=== PATIENT | male | born 1955 | race Caucasian/White ===

== ENCOUNTER 2017-06-14 07:04 | Day surgery (SDC) | payer MEDICARE, BC ==
--- NOTE | 2017-06-14 06:25 | History and Physical Report ---
DATE: 06/13/2017. CHIEF COMPLAINT AND HISTORY OF CHIEF COMPLAINT: This patient presents with a history of postlaminectomy radiculitis. Due to the failure of all therapies, the patient presents today for an implanted spinal catheter infusion trial with hydromorphone to determine if the implantation of a permanent system will be of any value in pain control. PAST MEDICAL HISTORY: Cardiac arrhythmia and sleep apnea. PAST SURGICAL HISTORY: Lumbar spinal surgery times two, throat surgery. EMPLOYMENT STATUS: Retired. MEDICATIONS ON ADMISSION: To be provided. He is on aspirin. ALLERGIES: None listed. SOCIAL HISTORY: Caffeine. FAMILY HISTORY: Cancer. REVIEW OF SYSTEMS: The patient seems appropriate and in no acute distress. The remainder of the systems review shows glasses, dentures, sleep disturbance, cardiac disease, depression, and difficulty sleeping. PHYSICAL EXAMINATION: General: Height is 5 feet, 11 inches. Weight is 230. Vital Signs: Unavailable. HEENT: Within normal limits. Lungs: Clear. Heart: Regular rate and rhythm. Abdomen: Nontender. Musculoskeletal: Examination of the musculoskeletal system shows diffuse tenderness throughout the lumbar spine. The primary pain extends down the right lower extremity. Motor and sensory field function appears to be intact on the left and is reduced on the right. Ambulation: Assistive device utilized. Neurologic: Cranial nerves are intact. IMPRESSION: 1. POSTLUMBAR LAMINECTOMY SYNDROME, ICD-10 CODE M96.1. 2. LUMBAR RADICULITIS, ICD-10 CODE M54.16 AND M54.17. PLAN: The patient is here for an implanted spinal catheter infusion trial with hydromorphone. The potential risks, side effects, and complications including nerve root injury, spinal cord injury, dural puncture, and spinal headache have all bee discussed and reviewed. Information about the pump through the artificial limb maker booklet has been provided and reviewed. This also discusses all of the potential risks, side effects, and complications. He has been in contact with the [employer] sales representative who has also reviewed the information. The patient understands and consents. The procedure will be consider outpatient, although an overnight stay will be evaluated. An epidural blood patch will be performed as a secondary measure to prevent spinal headache. This will require that he lie flat for four hours and then slowly elevated for one hour. The patient understands all of the potential risks and has agreed to proceed. JOB NUMBER: [id number] cc: Amber Yan
[~2017-06-14 07:04] MED LIST: ACETAMINOPHEN 1,000 MG/100 ML BTL IV ONE; CEFAZOLIN 2 Gram 2 GM/50 ML BAG IVPB ONE; FAMOTIDINE 20MG TABLET PO ONE; HYDROMORPHONE PF 2MG/ML AMP 0.004 MG in 0.9 % SODIUM CHLORIDE 10ML VIA 0.998 ML IV ONE; HYDROMORPHONE PF 2MG/ML AMP 2 MG in 0.9 % SODIUM CHLORIDE 500ML 499 ML IV ONE; MECLIZINE 25 MG TABLET PO ONE; METOCLOPRAMIDE 10 MG TABLET PO ONE
[2017-06-14] MEDS ORDERED: PROPOFOL 10 MG/ML VIAL IV ONE (07:05)
[2017-06-14] MEDS ORDERED: HYDROMORPHONE HCL 2 MG/ML VIAL IV ONE (07:05)
[2017-06-14] MEDS ORDERED: CEFAZOLIN 1G VIAL IM ONE (07:05)
[2017-06-14] MEDS ORDERED: MIDAZOLAM HCL 2MG/2ML VIAL IV ONE (07:05)
[2017-06-14] MEDS ORDERED: FENTANYL PF 100MCG/2ML VIAL IV ONE (07:05)
[2017-06-14] MEDS ORDERED: LIDOCAINE 2% MDV (20MG/ML) 20ML VIAL IV ONE (07:05)
[2017-06-14] MEDS ORDERED: BUPIVACAINE 0.75% W/EPI MPF 30ML VIAL IVP ONE (07:05)
[2017-06-14] MEDS ORDERED: LIDOCAINE 1% W/EPI 1:200,000 MPF 30ML SQ ONE (07:05)
[2017-06-14 07:30] LABS: BASO % 0.9 % (0-6); EOS % 3.8 % (0-6); GRAN % 52.5 % (47-80); HEMATOCRIT 49.2 % (42.0-52.0); HEMOGLOBIN 16.6 gm/dl (14.0-18.0); LYMPH % 29.6 % (16-45); MEAN CELL VOLUME 83.7 fl (81-97); MEAN CORPUSCULAR HEMOGLOBIN 28.2 pg (27-33); MEAN CORPUSCULAR HGB CONC 33.7 g/dl (32-36); MEAN PLATELET VOLUME 9.8 fl (7.4-10.4); MONO % 13.2 % (0-9); PLATELET COUNT 359 K/uL (130-400); RED BLOOD COUNT 5.88 M/uL (4.40-5.70); RED CELL DISTRIBUTION WIDTH 16.3 % (11.5-14.5); WHITE BLOOD COUNT W/O DIFF 6.5 K/uL (4.2-12.2)
[2017-06-14] MEDS ORDERED: TEMAZEPAM 15 MG CAPSULE PO PRN ×2 (09:50)
[2017-06-14] MEDS ORDERED: HYDROMORPHONE HCL 2 MG/ML VIAL IM PRN (09:50)
[2017-06-14] MEDS ORDERED: DIPHENHYDRAMINE HCL 25 MG CAPSULE PO PRN ×2 (09:50)
[2017-06-14] MEDS ORDERED: METOCLOPRAMIDE HCL 10 MG/2 ML VIAL IVP PRN (09:50)
[2017-06-14] MEDS ORDERED: SENNOSIDES/DOCUSATE SODIUM UD CAPSULE PO PRN ×2 (09:50)
[2017-06-14] MEDS ORDERED: DIPHENHYDRAMINE HCL IV 50 MG/ML VIAL IVP PRN ×2 (09:50)
[2017-06-14] MEDS ORDERED: RINGERS SOLUTION,LACTATED 1,000 ML IV SCH (09:50)
[2017-06-14] MEDS ORDERED: ACETAMINOPHEN 325 MG TAB PO PRN ×2 (09:50)
[2017-06-14] MEDS ORDERED: METOCLOPRAMIDE 10 MG TABLET PO PRN (09:50)
[2017-06-14] MEDS ORDERED: HYDROCODONE/APAP 7.5/325MG TABLET PO PRN ×2 (09:50)
[2017-06-14] MEDS ORDERED: AL HYDROX/MAG HYDROX 30ML UD PO PRN (09:50)
[2017-06-14] MEDS ORDERED: OXYCODONE/APAP 10MG-325MG TABLET PO PRN ×2 (09:50)
[2017-06-14] MEDS ORDERED: HYDROMORPHONE HCL 1 MG/ML SYRINGE IM PRN (09:50)
[2017-06-14] MEDS ORDERED: NALOXONE 0.4 MG/1 ML VIAL IVP PRN (09:50)
[2017-06-14] MEDS ORDERED: 0.9 % SODIUM CHLORIDE 10ML SYR IVP SCH (10:00)
[2017-06-14] MEDS ORDERED: OXYCONTIN 40 MG PO SCH (14:00)
[2017-06-14] MEDS ORDERED: CEFAZOLIN 2 Gram 2 GM/50 ML BAG IVPB SCH (16:00)
--- NOTE | 2017-06-14 16:26 | Operative Note - Ferro ---
DATE OF SURGERY: 06/14/17 PREOPERATIVE DIAGNOSES: 1. POST LAMINECTOMY SYNDROME, ICD-10 CODE M96.1 2. LUMBAR RADICULITIS, ICD-10 CODE M54.16 AND M54.17. OPERATION: 1. FLUOROSCOPICALLY-GUIDED ACCESS SPINAL AT L2-3. PLACEMENT OF THIN-WALLED SPINAL CATHETER T11-12. 4EDD2. DIAGNOSTIC MYELOGRAPHY WITH RADIOLOGIC SUPERVISION AND INTERPRETATION. 3. SPINAL OPIOID BOLUS HYDROMORPHONE 0.002 MG SPINAL SPACE. 4. INCISION, SUBCUTANEOUS DISSECTION, ANCHORING SPINAL CATHETER SUPRASPINOUS FASCIA USING ANCHOR AND NONABSORBABLE SUTURE. 5. INCISION, SUBCUTANEOUS DISSECTION, AND CREATION OF SMALL SUBCUTANEOUS POUCH RIGHT POSTERIOR GLUTEAL MARGIN. 6. TUNNELING BETWEEN MIDLINE CATHETER POUCH INTO GLUTEAL MARGIN POUCH REVISING CATHETER INTERFACING WITH SECOND CATHETER COMPONENT BY WAY OF CONNECTOR TUNNELING SECOND CATHETER COMPONENT 6 CM SUPERIOR EXITING SKIN. 7. INTERFACE EXTERNAL CATHETER WITH EXTERNAL INFUSION DEVICE SET TO DELIVER BY INFUSION HYDROMORPHONE AT 0.04 MG PER DAY. 8. CLOSURE OF INCISIONS MIDLINE VICRYL FOR FASCIA, RUNNING SUBCUTICULAR VICRYL FOR SKIN, DERMABOND. POSTERIOR GLUTEAL MARGIN POUCH NYLON SUTURE. DRESSINGS PLACED SECURING CATHETER AND ALL CONNECTIONS UNDER STERILE DRESSING. 9. EPIDURAL BLOOD PATCH AT L3-4 20 ML AUTOLOGOUS BLOOD STERILE TECHNIQUE, LEFT ANTECUBITAL. SURGEON: EVELINE OROURKE D.O. ANESTHESIA: LOCAL SEDATION. ANESTHESIA PROVIDER: HASEEB ANDRADE CRNA INDICATION: This patient presents with a history of lumbar laminectomy and pain , which is intractable radiculitis. Diagnostic studies confirm laminectomy at 4- 5 and 5-1 with extensive spondylosis. Due to the failure of therapy, he is here for an implanted spinal catheter infusion trial Hydromorphone to determine if the implantation of a permanent system can be of any value in pain control. PROCEDURE: Intravenous line, vital sign monitoring, IV sedation, patient prone. Sterile prep, sterile technique. Using AP and lateral imaging at L2-3, a 20- gauge spinal needle paramedian approach beveled with a long axis was inserted into the spinal space; this guided by AP and lateral imaging. With CSF flow through the needle, a thin-walled spinal catheter was advanced and positioned at T11-12. A pursestring suture was placed around the needle penetration point and then the needle was removed. The pursestring suture tightened stopping CSF loss across the catheter. The stylette was then removed from the catheter and CSF was noted coming out of the catheter on the surgical drapes. The catheter was clamped. Diagnostic myelography was then performed; the resulting flow characteristics were appropriate for spinal flow and appropriate in terms of characteristics. With the catheter tip confirmed, a bolus of Hydromorphone at 0.04 mg was given into the spinal space. The catheter was then again clamped after a second dose of contrast was injected to clear the opioid through the catheter. CSF continued to notice and identified through the catheter. The catheter was clamped. The skin above and below the site infiltrated, incision was made, and subcutaneous dissection was conducted to the supraspinous fascia. The anchor was then anchored to the supraspinous fascia with an anchoring device and nonabsorbable suture. At the right posterior gluteal margin, a site the patient already picked for the pump reservoir should this be successful, the skin was infiltrated then a small pouch was formed subcutaneously. A tunneling tool was then used to carry the spinal catheter into the gluteal pouch and then this catheter once exiting the gluteal margin pouch was resected and interfaced with a second catheter component by way of connector. The second of catheter component was tunneled superior from this pouch and then exited the skin. The external catheter was then interfaced with an external pump set to deliver Hydromorphone at 0.04 mg a day. The posterior gluteal margin pouch was then closed with a nylon suture. The midline catheter incision was closed Vicryl for fascia and running subcuticular Vicryl for skin. A Dermabond closure was placed over this particular incision. Dressings were then placed covering both incisional sites and the catheter. All catheter connections were covered with sterile dressing. At L3-4, which was one level below the dural puncture, skin infiltrated and an 18-gauge Tuohy needle with [id number] into the epidural space. Simultaneously, 20 mL of autologous blood drawn sterile technique, left antecubital. An epidural blood patch was then performed at this level with this blood. The dressing was reinforced covering this penetration point. The infusion started at 0.04 and he was transported flat, pillow under head and knees, into the Recovery Room stable showing no side-effects from the procedure or the sedation. He will be monitored on the Floor flat for four hours , slowly elevated for one. His request is to go home. He will be monitored and meet the nurse criteria and then to be evaluated for discharge. DISCHARGE INSTRUCTIONS: 1. Sites will remain clean and dry. No showering or bathing in any way that would disrupt the dressings. If it happens, contact the clinic. 2. Standard medications resumed including Levaquin, the antibiotic, 500 mg once a day for 14 days. 3. Spinal opioid side-effects; respiratory depression, nausea, vomiting, constipation, urinary retention, light headedness or rash have all been discussed and reviewed. All other instructions provided, numbers to contact, problems given. We will be contacting the patient within the next 24 hours for an appointment to come out for his first increase. A total of three increases will be scheduled, if necessary, over the next two-week trial. At the end of the two week trial, we will either implant the permanent system or remove the implanted catheter. All other instructions provided, numbers to contact, problems given. He was then discharged. cc: Dr. Claudy Griffin JOB NUMBER: [id number] MTDD
[2017-06-14] MEDS ORDERED: OMEPRAZOLE 40MG PO SCH (22:00)
--- NOTE | 2017-06-15 07:53 | RADIOLOGY REPORT ---
EXAM: AP LUMBAR SPINE HISTORY: PAIN PUMP TRIAL. TECHNIQUE: An AP view of the lumbar spine was obtained. Comparison: None. FINDINGS: Catheter tubing projects over the right mid abdomen. No tubing identified over the visualized spine. IMPRESSION: 1. NO CATHETER TUBING OVERLYING THE SPINE IDENTIFIED. 2. SEGMENT OF CATHETER TUBING PROJECTS OVER THE RIGHT MID ABDOMEN. JOB NUMBER: [id number] MTDD
[2017-06-15] MEDS ORDERED: CHLORTHALIDONE 25 MG TABLET PO SCH (10:00)
[2017-06-15] MEDS ORDERED: LEVOTHYROXINE 125 MCG PO SCH (10:00)
[2017-06-15] MEDS ORDERED: ARIPIPRAZOLE 2 MG TABLET PO SCH (10:00)
== END 2017-06-14 14:15 | disposition home or self-care (01) ==
LOC: SUR 07:04 → MEDSURG 07:04 → EDSTATUS 08:00 → MEDSURG 09:38 → SUR 09:38 → UNDOADMIN 09:38 → MEDSURG 09:38
PROVIDERS: ATTEND Pain Medicine Interventional Pain Medicine
DX: M96.1 Postlaminectomy syndrome, not elsewhere classified (principal); M54.16 Radiculopathy, lumbar region; M54.17 Radiculopathy, lumbosacral region
CPT/HCPCS: 62350; 00630; 85025; 72020; Q9967; J3010; J1170 ×2; J0690; J3490; J7040

== ENCOUNTER 2017-06-28 09:29 | Day surgery (SDC) | payer MEDICARE, BC ==
--- NOTE | 2017-06-28 08:29 | History and Physical Report ---
CHIEF COMPLAINT & HISTORY OF CHIEF COMPLAINT: This patient presents with a postlaminectomy radiculitis. Due to the failure of all therapies, an ongoing implanted spinal catheter featuring has been in progress. He has noted 75+% pain control with an improved functionality and mobility. Due to the failure of all therapies and the success of the trial, he presents today for permanent implant. MEDICAL HISTORY: Cardiac arrhythmia, sleep apnea, depression, difficulty sleeping. SOCIAL HISTORY: Caffeine. FAMILY HISTORY: Cancer. SURGICAL HISTORY: Multiple lumbar spinal surgeries, throat cancer. EMPLOYMENT STATUS: Retired. ALLERGIES: None listed. MEDICATIONS: To be provided. PHYSICAL EXAMINATION: General: Height is 5'11". Weight is 230 lb. Vital Signs: Blood pressure: not available. HEENT: Within normal limits. Lungs: Clear. Heart: Regular rate and rhythm. Abdomen: Nontender. Musculoskeletal: Examination of the musculoskeletal system shows diffuse tenderness throughout the lumbar spine. Range of motion does produce pain moving into both legs across the front and back surface. Motor and sensory field function shows mild sensory deficits across L4 and L5 to the right. Motor weakness appears to be somewhat more prominent right than left. Ambulation: Assistive device utilized. Neurologic: Cranial nerves intact. IMPRESSION: 1. POSTLUMBAR LAMINECTOMY SYNDROME, ICD-10 CODE M96.1. 2. LUMBAR RADICULITIS, ICD-10 CODE M54.16 AND M54.17. 3. IMPLANTED SPINAL INFUSION TRIAL WITH HYDROMORPHONE. PLAN: With the failure of all therapy and the success of the trial, the patient presents today for implantation of a permanent system. The procedure will be considered outpatient and overnight stay will be evaluated. Potential risks, side effects, and complications have all been carefully reviewed and discussed. cc: Dr. Claudy Griffin JOB NUMBER: [id number] MTDD
[~2017-06-28 09:29] MED LIST changes: +HYDROMORPHONE HCL IV ONE; +HYDROMORPHONE HCL/PF 0.002 MG in 0.9 % SODIUM CHLORIDE 10ML VIA 0.998 ML IVP ONE; -HYDROMORPHONE PF 2MG/ML AMP 0.004 MG in 0.9 % SODIUM CHLORIDE 10ML VIA 0.998 ML IV ONE; -HYDROMORPHONE PF 2MG/ML AMP 2 MG in 0.9 % SODIUM CHLORIDE 500ML 499 ML IV ONE; +SODIUM CHLORIDE 0.9% IV ONE
[2017-06-28] MEDS ORDERED: PROPOFOL 10 MG/ML VIAL IV ONE (09:30)
[2017-06-28] MEDS ORDERED: LIDOCAINE 1% W/EPI 1:200,000 MPF 30ML SQ ONE (09:30)
[2017-06-28] MEDS ORDERED: LIDOCAINE 2% MDV (20MG/ML) 20ML VIAL IV ONE (09:30)
[2017-06-28] MEDS ORDERED: MIDAZOLAM HCL 2MG/2ML VIAL IV ONE (09:30)
[2017-06-28] MEDS ORDERED: FENTANYL PF 100MCG/2ML VIAL IV ONE (09:30)
[2017-06-28] MEDS ORDERED: BUPIVACAINE 0.75% W/EPI MPF 30ML VIAL IVP ONE (09:30)
[2017-06-28] MEDS ORDERED: CEFAZOLIN 1G VIAL IM ONE (09:30)
--- NOTE | 2017-06-28 18:13 | RADIOLOGY REPORT ---
EXAM: SPINE, 1 VIEW HISTORY: STIMULATOR PLACEMENT. TECHNIQUE: A single AP view of the lumbar spine was performed. FINDINGS: Stimulator tip is at the L4 level. IMPRESSION: STIMULATOR TIP AT THE L4 LEVEL. JOB NUMBER: [id number] MTDD
--- NOTE | 2017-06-29 07:55 | Operative Note - Ferro ---
DATE OF SURGERY: 06/28/2017. PREOPERATIVE DIAGNOSIS: 1. POSTLUMBAR LAMINECTOMY SYNDROME, ICD-10 CODE M96.1. 2. LUMBAR RADICULITIS, ICD-10 CODE M54.16 AND M54.17. POSTOPERATIVE DIAGNOSIS: 1. POSTLUMBAR LAMINECTOMY SYNDROME, ICD-10 CODE M96.1. 2. LUMBAR RADICULITIS, ICD-10 CODE M54.16 AND M54.17. OPERATION: 1. FLUOROSCOPICALLY GUIDED INCISION, SUBCUTANEOUS DISSECTION, AND REMOVAL OF EXTERNAL CATHETER. 2. INCISION, SUBCUTANEOUS DISSECTION, AND CREATION OF SUBCUTANEOUS POUCH AT RIGHT POSTERIOR GLUTEAL MARGIN. PLACEMENT OF PUMP IDENTIFIED MEDTRON[employer] PROGRAMMABLE 20 ML PREFILLED WITH HYDROMORPHONE. 3. INCISION, SUBCUTANEOUS DISSECTION, AND REVISION OF INTERNAL SPINAL CATHETER. RESECTION, REVISION, AND INTERFACE WITH SECOND CATHETER COMPONENT BY WAY OF CONNECTOR TO INTERFACE TO PUMP. 4. PLACEMENT OF PUMP PREFILLED WITH HYDROMORPHONE ONTO THE FIELD, INTERFACE WITH EXISTING, AND REVISE SPINAL CATHETER. 5. PLACEMENT OF PUMP INTO POUCH, SECURING TO POSTERIOR FASCIA USING PUMP EYELETS AT TWO POINTS WITH NONABSORBABLE SUTURE. 6. PLACEMENT OF CURVED 24-GAUGE HINOJOSA NEEDLE TO ACCESS PORT. ASPIRATION OF CATHETER CONTENTS CLEARING CATHETER OF OPIOID ALONG WITH A CEREBROSPINAL FLUID MIXTURE WITH 1.0 ML ASPIRATED. 7. DIAGNOSTIC MYELOGRAPHY WITH RADIOLOGIC SUPERVISION AND INTERPRETATION THROUGH ACCESS PORT. CONTRAST FLOW CHARACTERISTICS MOVING THROUGH THE PUMP CATHETER. NO KINKS, BENDS, OR OBSTRUCTION. CATHETER TIP AT T11-12 IDENTIFIED WITH SMOOTH, LINEAR SPINAL FLOW CHARACTERISTICS NOTED. 8. CLOSURE OF INCISION WITH VICRYL FOR THE FASCIA AND RUNNING SUBCUTICULAR VICRYL FOR THE SKIN. DERMABOND CLOSURE. 9. PROGRAMMING OF PUMP TO DELIVER BY CONTINUOUS INFUSION HYDROMORPHONE AT 0.10 MG PER DAY; INCREASED FROM 0.08 MG PER DAY. SURGEON: Julius Wolff D.O. ANESTHESIA: Local sedation. ANESTHESIA PROVIDER: Reji Rosenberg CRNA. INDICATION: This patient presents with a history of postlaminectomy radiculitis. The implanted spinal catheter infusion trial with hydromorphone at 0.08 mg per day provided 75 percent pain control and no side effects. Due to the failure of all therapy and the success of the trial, he presents today for implantation of a permanent system. DESCRIPTION OF PROCEDURE: Intravenous line, vital sign monitoring, and intravenous sedation. Prepped and draped with sterile technique. The patient was positioned prone. All of the externalized dressings were removed. The externalized catheter was clamped, and the external pump was removed. Sterile prep and sterile technique. Under imaging the previous pouch at the right posterior gluteal margin was infiltrated. An incision was made and subcutaneous dissection was conducted to the interface and connection between the internal and external catheter components. The catheter was then clamped and cut. The external component was removed while pulling away from the incision. The second catheter component was then revised and resected with a new catheter component for the pump by way of a connector. The pouch was then widened and deepened to accommodate the pump identified as a Medtronic 20 mL programmable. Antibiotic irrigation and Bovie for hemostasis. The revised catheter was then interfaced to the pump, placed into the pouch, and secured to the fascia with nonabsorbable suture at two points using pump eyelets. A 24- gauge Hinojosa needle was inserted into the access port, and 1.0 mL of catheter contents was aspirated along with cerebrospinal fluid; 1.0 mL was aspirated confirming clear and easy flow characteristics. Contrast was then injected. The resulting myelogram with radiologic supervision and interpretation showed contrast moving away from the pump at the connection, showing the pump, catheter , and subcutaneous tissue with no kinks, bends, or leaks. The tip of the catheter at T11 was identified with smooth, linear flow of contrast or myelogram flow identified. Again, this confirmed patency and functionality. With the pump in the pouch, the incision was then closed with Vicryl for the fascia and running subcuticular Vicryl for the skin. Dermabond closure. The pump was then programmed increasing the space right from the external device at 0.8 to the internal device at 0.10; increase to accommodate for the pump flow and pump characteristics. He was then transported to the recovery room stable, showing no side effects from the procedure or the sedation. When fully awake and alert, he will be prepared for discharge. DISCHARGE INSTRUCTIONS: 1. The sites are to remain clean and dry. No showering or bathing in any way that would disrupt dressings. If this happens, contact the clinic. 2. Standard medications to be resumed including Levaquin the antibiotic which will be continued for another seven to ten days and then discontinued. 3. The office is to contact the patient at home to set up an evaluation in seven to ten days to evaluate the incisional site. Until then, his activities shall stay low. No bend, lift, push, or pull. 4. All other instructions were provided and numbers to contact with problems were given. Spinal opioid side effects have all been discussed and reviewed with the patient including respiratory depression, nausea, vomiting, constipation, urinary retention, lightheadedness, and rash. JOB NUMBER: [id number] cc: Claudy Griffin M.D. MTDKishore
== END 2017-06-28 11:35 | disposition home or self-care (01) ==
LOC: SUR 09:29
PROVIDERS: ATTEND Pain Medicine Interventional Pain Medicine
DX: M96.1 Postlaminectomy syndrome, not elsewhere classified (principal); M54.16 Radiculopathy, lumbar region; M54.17 Radiculopathy, lumbosacral region; I10 Essential (primary) hypertension; E03.9 Hypothyroidism, unspecified; K21.9 Gastro-esophageal reflux disease without esophagitis; F34.1 Dysthymic disorder
CPT/HCPCS: 62350; 62362; 00630; 62367; 72020; Q9967; J1170; J3010; J0690; J3490; C1755